=== PATIENT | male | born 1990 | race Caucasian/White ===

== ENCOUNTER 2020-04-13 14:33 | Emergency (ER) | payer OTHER ==
[~2020-04-13] VITALS: Ht 193 cm; Wt 90.7 kg
--- NOTE | 2020-04-13 15:00 | NUR ---
PT IS IN ROOM #2A. DR BAEZ EVALUATED THE PT.
--- NOTE | 2020-04-13 15:54 | NUR ---
PT WAS EVALUATED BY DR BAEZ. PT WAS D/C'd TO HOME. D/C INSTRUCTIONS GIVEN TO THE PT.
[2020-04-13 15:55] VITALS: BP 131/75
== END 2020-04-13 16:12 | disposition home or self-care (01) ==
LOC: ER 14:41
DX: G44.309 Post-traumatic headache, unspecified, not intractable (principal); F07.81 Postconcussional syndrome; R40.2412 Glasgow coma scale score 13-15, at arrival to emergency department; V43.52XA Car driver injured in collision with other type car in traffic accident, initial encounter; Y92.410 Unspecified street and highway as the place of occurrence of the external cause
CPT/HCPCS: 70450; 73110; 73610; A4663